=== PATIENT | male | born 1935 | race Caucasian/White ===

== ENCOUNTER 2019-09-22 10:51 | Inpatient (IN) | payer OTHER, BC ==
[~2019-09-22] VITALS: Ht 177.8 cm; Wt 65.3 kg
[2019-09-22 10:54] VITALS: BP 97/48
[2019-09-22 11:29] LABS: HEMATOCRIT 31.5 % (42.0-52.0); HEMOGLOBIN 10.2 gm/dL (14.0-18.0); MCH 31.6 pg (26.0-34.0); MCHC 32.5 g/dL (28.0-37.0); MCV 97.1 fL (80.0-100.0); PLATELET COUNT 101 thou/uL (150-400); RBC 3.24 mil/uL (4.50-6.00); WBC 2.9 thou/uL (4.0-11.0)
[2019-09-22 11:38] LABS: APTT 32.9 Seconds (24.5-32.8); INR 1.2; PROTIME 12.1 Seconds (9.3-11.4)
[2019-09-22 11:42] LABS: URINE BILIRUBIN NEGATIVE (Negative); URINE BLOOD 3+ (Negative); URINE CLARITY CLEAR; URINE COLOR YELLOW; URINE GLUCOSE-RANDOM* NEGATIVE (Negative); URINE KETONES NEGATIVE (Negative); URINE LEUKOCYTES-REFLEX 1+ (Negative); URINE NITRITE-REFLEX NEGATIVE (Negative); URINE PROTEIN (DIPSTICK) NEGATIVE (Negative); URINE UROBILINOGEN 0.2 E.U./dl (0.2-1.0)
[2019-09-22 11:49] LABS: SQUAMOUS None Seen /LPF (0-3)
[2019-09-22 11:50] LABS: CALCIUM 7.9 mg/dL (8.5-10.1); CREATININE 1.2 mg/dL (0.7-1.3); POTASSIUM 4.1 mmol/L (3.5-5.1)
[2019-09-22 11:50] LABS: CASTS None Seen /LPF (None Seen); CRYSTALS None Seen /LPF (None Seen); URINE RBC None Seen /HPF (0-2); URINE WBC-REFLEX 0-5 Rare /HPF (0-5)
[2019-09-22 11:53] LABS: AMP/METHAMP Negative (Negative); BARBITURATES Negative (Negative); BENZODIAZEPINES POSITIVE (Negative); COCAINE Negative (Negative); METHADONE Negative (Negative); OPIATES Negative (Negative); PCP Negative (Negative)
[2019-09-22 11:53] LABS: ALBUMIN 2.2 g/dL (3.4-5.0); TOTAL BILIRUBIN 0.4 mg/dL (<0.1-1.0)
[2019-09-22 12:25] LABS: ABSOLUTE NEUTROPHILS 1.9 thou/uL (1.4-8.2); ANISOCYTOSIS 1+; PLATELET ESTIMATE NORMAL
[2019-09-22 15:02] VITALS: BP 118/58
[2019-09-22 15:30] VITALS: BP 93/44
--- NOTE | 2019-09-22 17:04 | NUR ---
PT WOKE UP AT 1700 FORM HIS SLEEP. PT IS AOX2 TO SELF DATE OF AND TIME. PT CURRENTLY EATING IN DINING ROOM YELLOW SHIRT, YELLOW SOCKS ON. WILL CONTINUE TO MONITOR
--- NOTE | 2019-09-22 17:54 | NUR ---
pt admitted on 5south at 1530. pt is drowsy sleepin lying in bed. on ra. pt repositioned with hob elevated to open airway. vs taken and charted see chart. o2 saturation 92% on ra. pt was too drowsy at time of admission to answer any questions. so pt was left in bed to rest with bed alarm on. pt then woke up at 1700. pt ate diner. swallow food well without chocking.
[2019-09-22 20:00] VITALS: BP 97/50
[2019-09-22 21:00] VITALS: BP 97/50
--- NOTE | 2019-09-22 22:00 | NUR ---
Assumed care of patient this pm shift. Patient in good spirits. Patient sitting in mileu chatting with peers. Patient states that he feels like this is detention and that we should have cards or checkers to keep people from being bored. Patient denies pain. Patient denies hi/si. Patient takes medications whole. Patient is continent of bowl and bladder. Patients assessment shows clear breath sounds, active bowel sounds, and s1 s2 heard with auscultation. We will continue to monitor.
[2019-09-23 08:35] VITALS: BP 137/74
[2019-09-23 10:56] VITALS: BP 137/74
[2019-09-23 11:03] VITALS: BP 137/74
--- NOTE | 2019-09-23 13:34 | NUR ---
Assumed care this am around 0700. Patient is alert and oriented. He is pleasant and cooperative. This morning when taking breakfast speech therapist saw him cough as he swallows. Swallow study was ordered and he failed. diet adjusted and thickener added. Speech therapist observed him during lunh time while he is taking the new diet and she said he did so well. Patient denies SI/HI. Calm and participates in the group therapy. Vitals are stable. Will continue to monitor.
--- NOTE | 2019-09-23 14:58 | NUR ---
GISELLA and Dr. Garrison spoke with Maria Del Carmen about obtaining access to pt's finances. She said her and her sister Krystin have a trust in their names already, so they will be able to fund. She said they will need assistance in identifying places for memory care. SW team will continue to follow pt during his stay.
[2019-09-23 20:26] VITALS: BP 98/58
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
--- NOTE | 2019-09-23 22:58 | NUR ---
Assumed care of patient this pm shift. Patient in good spirits. Patient requests popcorn. Patient is very courteous and cooperative with rn. Patient denies pain. Patient denies hi/si. Patient concerned about the time he takes flomax and requests to take it in the evening. Patient takes medications whole. Patient ambulates without assistance. Patient states that he works out. Patients assessment shows clear breath sounds, active bowel sounds, and s1 s2 heard with auscultation. We will continue to monitor.
[2019-09-24 09:04] VITALS: BP 109/64
--- NOTE | 2019-09-24 10:30 | NUR ---
TALKED TO KEMI, PT DAUGHTER. SHE HAD CONCERNES ABOUT SWALLOW STUDY, HIS CLOTHES, AND ROSERY. SHE ASKED IF HE CAN SEE A CLERGY TO GET COMMUNION. SHE ALSO WAS WANTING TO KNOW ABOUT TRILIPTIAL THAT WAS GOING TO START TODAY OR NOT. SHE STATED HE WOULD LIKE TO HAVE A PRIVATE ROOM FOR HIS COMFORT. SHE ALSO WANTED TO MAKE SURE HE GETS HIS SLIPPERS AND ELECTRIC SHAVER. GAVE PT SHAVER, SLIPPERS AND PUT A PAIR OF CLOTHES IN HIS ROOM. WHEN PT WAS FINISHED WITH ELECTRIC RAZOR, WE PUT AWAY IN HIS PERSONAL BAG IN LOCKER.
[2019-09-24 11:06] VITALS: BP 109/64
--- NOTE | 2019-09-24 12:54 | NUR ---
Assumed care at 0700. Patient awake, alert and oriented x4. Very forgetful. Vitals are stable. Patient failed a swallow study yesterday so he is still on mechanical diet. Today he was complaining that he wants to eat what other patients are eating but he was reminded of his special diet and why he is taking it. He refused to eat lunch. Patient has a running nose(common cold) and Dr. Bowman was notified. Patient denies SI/HI. Jovial mood when conversing with the peers. Ambulates without any support. Will continue ot monitor.
--- NOTE | 2019-09-24 13:43 | NUR ---
0900 PATIENT REFUSED TO PARTICIPATE IN ANY GROUPS.
[2019-09-24 19:15] VITALS: BP 87/53
--- NOTE | 2019-09-24 22:59 | NUR ---
Pt alert and oriented x4. Pt was in the dayroom watching tv at time of assessment. Pt was plesant and cooperative during assessment. Pt denies anxiety and/or depression. Pt denies SI/HI/AH/VH. Pt had HS snacks. Pt took meds whole. Pt on thickened liquid. Pt spoke with and dtr prior to bedtime. Pt currently in bed sleeping. Will continue to monitor.
[2019-09-25 08:49] VITALS: BP 101/59
[2019-09-25 10:38] VITALS: BP 101/59
[2019-09-25 19:38] VITALS: BP 107/53
[2019-09-26 09:08] VITALS: BP 115/56
[2019-09-26 12:40] VITALS: BP 115/56
--- NOTE | 2019-09-26 13:00 | NUR ---
ASSUMED CARE AT 0700 THIS MORNING. PT. UP, DRESSED AND ON THE UNIT FOR MEALS. FAMILY CALLED AND WANTED UPDATE ON PT. UPDATE PROVIDED. PT. WALKING ON THE UNIT. HE STATES, "I'M DOING MY EXERCISES". HE IS PLEASANT AND COOPERATIVE WITH STAFF/PEERS. SAT ON THE UNIT DURING MORNING MEETING. HE TOOK HIS MEDICATIONS WITHOUT PROBLEMS.
--- NOTE | 2019-09-26 15:13 | NUR ---
Due to COVID-19 SW is meeting with patients and completing check-ins. SW brought pt to her office to talk since he wanted to speak privately. Pt asked for an update and SW explained she is working with his daughters and niece. He asked if he needed to speak to his lugger. SW responded if he wanted to he could. He said "everyone else has experts talking to them, and I need my own." SW agreed that he should have someone to discuss decisions with.
[2019-09-26 19:49] VITALS: BP 126/69
--- NOTE | 2019-09-27 00:53 | NUR ---
Assumed care on 09/26/19 @ 1900, in the [facility], watching tv and socializing with peers. Cooperated with assessment and compliant with medications. HRRR, S1S2 auscultated. Lung sounds clear, diminished in L lower field. Pt reports he has had L lung surgery removing a lobe of his lung. Honey thick beverages and Mechanical soft diet orders in place. Pt likes neither the honey thick nor the mechanical soft food. Tylenol 650 provided for 5/10 knee pain @ 2155, follow up noted to be sleeping. Later, was provided Trazadone 25 @ 2355 for insomnia. Returned to bed @ 0035, and is sleeping at this writing, bed in low position, eyes closed, respirations even and unlabored.
[2019-09-27 05:55] VITALS: BP 126/69
--- NOTE | 2019-09-27 06:02 | NUR ---
slept 4 hours overnight
[2019-09-27 09:29] VITALS: BP 126/64
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
--- NOTE | 2019-09-27 17:09 | NUR ---
SW completed a check in instead of group with pt's due to COVID-19 guidelines SW, nursing extrusion press supervisor, and a FINANCIAL SALES MANAGER joked with pt during check in; they protended pt was the boss and they were the patients. He appeared to enjoy that role play. He then wanted to know who was making the decisions in him being on the unit.
[2019-09-27 19:39] VITALS: BP 107/59
--- NOTE | 2019-09-27 20:28 | NUR ---
Assumed care of patient at change of shift. Pt. up ambulating all around the unit talking to peers in day room and talking to his roomate. He comes to the nurses station to make requests for his roomate. He gave up and stated that patient had to urinate with urinal. He then came up and stated that he needed a bedpan, and he took him a snack and came to the nurse station to say that someone needed to go help him eat it. He was told that snacks were not allowed in the room and he stated that he was sorry for taking it in there. His roomate's nurse went down to assist the roomate. He is a/Ox4. He denies pain, SI/HI/AH/VH.
[2019-09-27 23:23] VITALS: BP 107/59
[2019-09-28 06:22] LABS: CALCIUM 8.1 mg/dL (8.5-10.1); CREATININE 0.9 mg/dL (0.7-1.3); POTASSIUM 3.6 mmol/L (3.5-5.1)
[2019-09-28 09:25] VITALS: BP 149/71
--- NOTE | 2019-09-28 12:50 | NUR ---
GISELLA sent an email to Krystin Agrawal, and Maria Del Carmen asking if they have been able to identify any places they would like GISELLA to send a referral to. SW team will continue to follow pt during his stay on this unit.
--- NOTE | 2019-09-28 14:00 | NUR ---
Assumed care at 0700. Has been up in the w/c or recliner during the shift. His conversation is garbled, nonsensical. At one point he was using his gown to wipe the table. He is incontinent and takes 2-3 staff to transfer him, depending on his level of cooperation. He does not try to engage others in conversation. No indicators of pain. He has been toileted x 4 during the shift.
--- NOTE | 2019-09-28 19:25 | NUR ---
Nurse spoke with patient's daughter Dqcoc=[phone] she had brought in more belongings. Patient was given eye glasses-garcia and newspapers. Belongings inventoried by community service specialist. His conversation has been pleasant and appropriate. He has pleasant/euthymic mood, pleasant to happy affect. He used his two phone calls to his . No c/o pain. Compliant with medications and programming. Stated he has right knee cap pain-did not want anything for it. He would like his own support hose washed and returned to wear. Given prune juice; no BM reported for today. Said he spit up a tiny amount of blood this AM. Instructed to show staff if he spit up any more blood.
--- NOTE | 2019-09-28 19:51 | NUR ---
ASSUMED CARE ON 09/28/19 @ 1900, IN BED, AWAKE A&O X 3-4, LUNGS CTA IN UPPER KIDD, LOWER RIGHT FIELD CTA, LOWER LEFT FIELD DIMINISHED. PATIENT REPORTS SURGICAL REMOVAL OF LOWER LEFT LUNGS. ABD ACTIVE X 4 Q, HRRR.
[2019-09-28 19:55] VITALS: BP 108/52; BP 149/71
--- NOTE | 2019-09-29 08:55 | NUR ---
GISELLA received an email from Maria Del Carmen asking for a listing of facilities in [place]. She also said her and her family are reviewing facilities in the area currently. GISELLA provided Maria Del Carmen with a listing of [place] facilite[place] via [email or web address] GISELLA team will continue to follow pt during his stay on this unit.
[2019-09-29 09:30] VITALS: BP 121/64
--- NOTE | 2019-09-29 09:54 | NUR ---
0700 ASSUMED CARE OF PATIENT. PATIENT IN ROOM AT THAT TIME. PATIENT TO DAYROOM FOR BREAKFAST ATE 90% OF MEAL. AFTER BREAKFAST PATIENT UP AMB IN VINCENT STATES "IM GETTING MY EXERCIS IN BY WALKING". MEDICATIONS GIVEN WITHOUT DIFFICULTY. PATIENT DENIES SI/HI/AH/VH, PATIENT REQUESTS ELECTRIC RAZOR TO SHAVE. 0950 PATIENT SHAVES IN ROOM. PATIENT IS CALM AND COOPERATIVE. WILL CONTINUE TO OBSERVE
[2019-09-29 19:45] VITALS: BP 107/56
--- NOTE | 2019-09-30 01:02 | NUR ---
Care assumed of patient at 1915: Patient seated in dayroom at start of shift. Interacting well with staff and peers. Alert and oriented x4. Pleasantly confused and forgetful at times. Denies SI/HI/AH/VH. Denies depression or anxiety. No s/s of delusional or paranoia behaviors. No aggression observed. Patient declined HS snack. Patient retired to bed rather early. Requested PRN Tylenol for knee pain. Patient became quite upset when provided HS medication due to wanting thin water and not honey thickened water. Patient states that he is always allowed thin water with his medications. Argumentative, resistant. Patient eventually took HS medications. Patient otherwise calm, pleasant and cooperative. Patient not interested in why he is receiving thickened liquids and the necessity of sticking with ST and MD orders. Patient was able to fall asleep shortly after and has been resting quietly since.
[2019-09-30 08:00] VITALS: BP 124/67
--- NOTE | 2019-09-30 12:50 | NUR ---
Date of Admission: 09/22/19 Date of Activity Therapy Assessment: 09/25/19 Activity Goal: Reality orientation, structure Initial Goal: 2 Group activities/day Weekly progress towards goal: Achieving current goals Group participation level: Full Behaviors observed: Patient is pleasant and engaged in the milieu. He enjoys socializing with both peers and staff. He is also often seen walking the halls for exercise. Plan: No change towards goal
--- NOTE | 2019-09-30 14:57 | NUR ---
GISELLA spoke with Maria Del Carmen who said the delay now is that they must get conservatorship before they can place pt in a facility due to pt's vigilant attempts to try to keep her, her sister, and her cousin out. She said [facility] is looking for placement in [place] and may have identified a couple places, but is still researching them. They will let GISELLA know Thursday via email options. SW team will continue to follow pt during his stay on this unit.
--- NOTE | 2019-09-30 16:22 | NUR ---
Up ambulating in unit without s/o distress. Alert and orientated X 4. R pupil 3mm and L pupil [address] Garrison aware. States he feel like a million dollars. Showered and shaved independently. Denies SI/HI. States concern is peer coming into his room and getting into his belongings. Working toward discharge. Breath sounds clear t/o, bilaterally equal. Reg HR auscultated. Color pink with brisk capillary refill and palpable peripheral pulses. Independent with voiding. Active bowel sounds over soft abdomen. Regular steady gait. Daughter called for update, spoke with pt.
--- NOTE | 2019-09-30 16:29 | NUR ---
SW did check in with patients instead of groups due to COVID-19 guidelines. Pt was talking with a staff member when she did rounds. He looked pleasant and not upset.
--- NOTE | 2019-09-30 21:11 | NUR ---
Assumed care of pt. at change of shift. He was ambulating hallways and sitting in day room. Gait is slow, slightly shuffling, steady and consistent. He is alert and oriented x 4, but forgetful at times.
[2019-09-30 23:07] VITALS: BP 124/67
--- NOTE | 2019-10-01 06:11 | NUR ---
Assumed care at change of shift. Pt. up ambulating with slow and steady gait. Patient is alert and oriented x 4. Pt. requested phone and called daughter and spoke nicely to family members and returned phone within time limit. Pt.denies pain and no signs or symptoms of distress noted. Pt. slept well through the night. He did ambulate to the nurses station to request help for his roomate. Assessment completed.
[2019-10-01 07:15] VITALS: BP 95/57
--- NOTE | 2019-10-01 12:02 | NUR ---
Up ambulating in unit without s/o distress. States he didn't sleep well last night d/t noise in unit. Goal is to work toward discharge. Alert and orientated X4. Denies SI/HI. R pupil 1 mm larger than L, reactive. Conversive with staff and peers. Breath sounds clear t/o, decreased in LLL. Reg HR auscultated. Color pink with brisk capillary refill and palpable peripheral pulses. Independent with voiding. Active bowel sounds over soft, rounded abdomen. Ambulates with regular, steady gait. Requesting something for runny nose. Clear drainage from nose. PRN med given. No s/o distress. Daughter called for update, then spoke with pt. Pt. then made additional phone call, informed of phone restrictions. Brought phone back to desk within 5 min. Eating lunch and reading paper in day room. No s/o distress.
--- NOTE | 2019-10-01 17:36 | NUR ---
SW met with patients individually instead of group due to COVID-19 guidelines. Patient stated he was sleepy and did not want to engage with SW.
[2019-10-01 20:21] VITALS: BP 105/51
[2019-10-01 23:32] VITALS: BP 105/51
[2019-10-01 23:50] VITALS: BP 105/51
--- NOTE | 2019-10-02 04:28 | NUR ---
Pt. slept well through the night. He is ad osman with his respositioning in bed and getting up to toilet. At approx. 0300 he ambulated to desk to check what the time was and then returned to his room and went back to sleep. Pt. continues to offer no complaints and no signs or symptoms of distress is noted.
[2019-10-02 09:23] VITALS: BP 109/67
--- NOTE | 2019-10-02 16:54 | NUR ---
GISELLA completed 1 on 1 vs. group due to COVID-19 guidelines. Patient was engaged. He expressed concerns about being able to order his meals for tomorrow. SW assisted with getting nursing staff to help with his meal request. Patient appeared satisfied.
--- NOTE | 2019-10-02 17:11 | NUR ---
ALERT AND OREIENTED X4 VERY PLEASANT AND COOPERATIVE. ATE ALL 3 MEALS IN DINNING ROOM. AMBULATES WITH SLOW STEADY GATI. TOOK SHOWER ON OWN AND SHAVED. SPOKE WITH FAMILY ON PHONE. DENIES PAIN. ATTENDED GROUPS AND PARTICIPATES WITH OTHER PATIENTS. GOOD APPETITE.
[2019-10-02 19:37] VITALS: BP 106/65
--- NOTE | 2019-10-02 22:59 | NUR ---
Assumed care on 10/02/19 @ 1900, sitting on a couch in the day room watching tv and socializing with peers. Daughter called and asked if she can bring [employer] papers, [employer] and [employer] newspaper. 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 Pt cooperated with assessment, Hrrr, Lungs CTA, diminished in lower left field, ABD N x 4 Q, compliant with medication. Received newspapers from family, placed in room on the nightstand. In bed at this writing, bed in low position, eyes closed, respirations even and unlabored. Will continue to monitor q 12 minutes for patient safety.
[2019-10-03 00:49] VITALS: BP 106/65
[2019-10-03 06:18] LABS: HEMATOCRIT 30.1 % (42.0-52.0); HEMOGLOBIN 10.3 gm/dL (14.0-18.0); MCH 32.9 pg (26.0-34.0); MCHC 34.2 g/dL (28.0-37.0); MCV 96.2 fL (80.0-100.0); PLATELET COUNT 112 thou/uL (150-400); RBC 3.13 mil/uL (4.50-6.00); RDW 19.3 % (10.5-14.5); WBC 2.9 thou/uL (4.0-11.0)
[2019-10-03 06:24] LABS: INR 1.1; PROTIME 11.5 Seconds (9.3-11.4)
[2019-10-03 06:42] LABS: ALBUMIN 2.2 g/dL (3.4-5.0); CALCIUM 8.1 mg/dL (8.5-10.1); POTASSIUM 3.6 mmol/L (3.5-5.1); TOTAL BILIRUBIN 0.6 mg/dL (<0.1-1.0); TOTAL PROTEIN 5.2 g/dL (6.4-8.2)
[2019-10-03 08:21] VITALS: BP 117/60
[2019-10-03 08:22] LABS: ABSOLUTE NEUTROPHILS 2.2 thou/uL (1.4-8.2); ANISOCYTOSIS 1+; PLATELET ESTIMATE NORMAL
[2019-10-03 09:14] VITALS: BP 117/60
--- NOTE | 2019-10-03 11:51 | NUR ---
1150 RESUMMED CARE FROM OVERNIGHT SHIFT THIS AM, PATIENT IN DAY ROOM READING THE PAPER WAITING FOR BREAKFAST. PATIENT'S ABDOMEN SOFT ROUND BOWEL SOUNDS PRESENT IN ALL FOUR QUADRANTS. PATIENT'S LUNGS CLEAR PATIENT DENIES SI/HI/AH/VH AT PRESENT. PATIENT COOPERATIVE PLEASANT NO BEHAVIORS WILL CONTINUE TO MONITOR PATIENT FOR SAFETY AND BEHAVIORS.
--- NOTE | 2019-10-03 16:52 | NUR ---
Due to COVID-19 regulations, GISELLA is meeting with pt's 1- in place of group activities. Pt was in his room reading a newspaper with SW arrived. 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
[2019-10-03 19:25] VITALS: BP 100/52
--- NOTE | 2019-10-04 04:40 | NUR ---
Assumed care of pt @ 1900. Pt calm et cooperative with pleasant demeanor. Took medications whole without difficulty. Pt attempted to decline thickened liquid but explained that he could not have unthickened liquid due to possibility of aspiration. Pt verbalized understanding. Ambulates the halls ad osman with steady gait. Denies SI/HI @ present time. VSWNL. Health assessment with no abnormalities noted at present time. Currently resting in bed with eyes closed. Will continue to monitor per protocol.
[2019-10-04 07:46] VITALS: BP 108/55
--- NOTE | 2019-10-04 10:20 | NUR ---
Up ambulating t/o unit with regular, steady gait. Conversive with staff and peers. Alert and orientated X4. Denies SI/HI. Pupils unequal and briskly reactive. Currently reading newspaper. Breath sounds clear t/o, decreased in LLL. Reg HR auscultated. Color pink with brisk capillary refill and palpable peripheral pulses. Fingertips slightly cool to touch. +1 edema in RLE, +2 in LLE, ankit hose replaced after assessment. Independent with voiding. Active bowel sounds over soft, rounded abdoment. States he had BM this AM, small smear of yellow brown stool around anus. Independent with ADLs. Compliant with meds.
--- NOTE | 2019-10-04 10:27 | NUR ---
Due to COVID-19, CONTACT CLERK met with patient 1:[address] of group activity. Patient was reviewing hardware store ads. 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 The patient spoke about having Boy Apron Cleaner help him do this when he discharges. He asked about exercising. CONTACT CLERK explained that a formal exercise group would not take place but that CONTACT CLERK could help him with self guided stretches or could walk the unit with him. Pt thankful but stated that he had planned to take a shower and shave.
--- NOTE | 2019-10-04 17:13 | NUR ---
Due to COVID-19 guidelines, SW met with pts on a 1-to-1 basis. Pt told SW that he was ready to "get out of here." SW explained she is working hard every day to get him to his new home. She provided an update that his daughter would like him to move to [place]. Pt said he is agreeable and wants to move there.
[2019-10-04 19:59] VITALS: BP 104/54
--- NOTE | 2019-10-04 21:04 | NUR ---
Care assumed of patient at 191: Patient seated at dining table at start of shift. Reading newspapers, opening letters that appears to be from children/grandchildren. Patient compliant with nursing assessment. Alert and oriented x4. Denies SI/HI/AH/VH. Denies depression or anxiety. Patient observed walking to ice machine and getting cup of ice water. Patient re-directed that he is to receive honey thickened liquids. Offered thickened juice, tea or water. Patient became irritable, yelling "just throw it away!". Denied wanting any thickened fluids offered. Patient took HS medication whole with applesauce. Ate 100% HS snack. Patient approached nurses station around 2029 asking to use the phone. Patient re-directed that he had already had his 2 phone calls for the day. Patient became agitated, stating "they called me!". Message passed to patient that his had called and wanted nurse to tell him that she said yoandy. Patient cursed a couple words and walked back to his room. Patient resting quietly in bed at this time.
[2019-10-05 09:09] VITALS: BP 126/62
--- NOTE | 2019-10-05 12:39 | NUR ---
Up ambulating in unit without s/o distress. Alert and orientated X 4. States he has R knee pain 5-6/10 but is reluctant to take Tylenol, given with AM meds. Denies SI/HI. Remains concerned about clear drainage from nose. Breath sounds clear t/o, decreased in LLL. Reg HR auscultated. Color pink with brisk capillary refill and palpable peripheral pulses. +2 nonpitting edema in lower extremities. [place] hose in place. Independent with voiding. Active bowel sounds over soft, rounded abdomen. Took shower and shaved independently. Conversive with peers and staff. States pain improved after Tylenol but continues to rate it a 5/5. Up ambulating in unit without s/o distress.
--- NOTE | 2019-10-05 15:44 | NUR ---
GISELLA received an email from Maria Del Carmen with 3 options she would like a referral sent to and they are: [facility], [facility], and [facility]. All 3 are located in [place]. Pt came to GISELLA office and asked for an update. GISELLA showed him pictures of all three facilities and he liked [facility]. GISELLA contacted all 3 facilities and sent referrals for pt to them. GISELLA provided this update to pt's daughters and niece. GISELLA team will continue to follow pt during her stay on this unit.
[2019-10-05 20:05] VITALS: BP 105/57
--- NOTE | 2019-10-06 04:55 | NUR ---
Assumed care of pt @ 1900. Pt calm et cooperative with pleasant demeanor this shift. Took medications whole with bites of applesauce due to pt's dislike of thickened liquids. Pt tolerated medications well. Ambulates the halls ad osman with steady gait. VSWNL. Health assessment with no abnormalities other than previously noted. Socialized in dayroom with peers until HS. Denies SI/HI @ present time. Currently resting in bed with eyes closed. Will continue to monitor per protocol.
--- NOTE | 2019-10-06 13:30 | NUR ---
0700 ASSUMED CARE OF PATIENT, PATIENT SITTING IN DAYROOM AT 0715. DENIES NEEDS AT THAT TIME. 0850 PATIENT TAKES MEDS WITHOUT DIFFICULTY, DENIES SI/HI, BS ACTIVE. PATIENT IS CALM AND COOPERATIVE. TAKES MEDICATION WITH APPLESAUCE. WILL CONTINUE TO OBSERVE
--- NOTE | 2019-10-06 15:05 | NUR ---
No group today d/t COVID 19 restrictions. Pt was provided various independent leisure activities throughout the day and occupied his time reading the newspaper and playing Relypsa with a deck of cards. Pt is in good spirits.
[2019-10-06 15:33] LABS: ABSOLUTE NEUTROPHILS 2.4 thou/uL (1.4-8.2); BASOPHILS 0.7 % (0.0-2.0); EOSINOPHILS 0.8 % (0.0-3.0); HEMATOCRIT 34.6 % (42.0-52.0); HEMOGLOBIN 11.4 gm/dL (14.0-18.0); LYMPHOCYTES 26.3 % (24.0-44.0); MCH 31.9 pg (26.0-34.0); MCHC 32.9 g/dL (28.0-37.0); MCV 96.9 fL (80.0-100.0); MONOCYTES 4.8 % (1.0-8.0); PLATELET COUNT 155 thou/uL (150-400); POLYS 67.4 % (36.0-66.0); RBC 3.57 mil/uL (4.50-6.00); RDW 19.5 % (10.5-14.5); WBC 3.6 thou/uL (4.0-11.0)
--- NOTE | 2019-10-06 15:33 | NUR ---
GISELLA received a call from Juan Richardson at [facility] stating he would like to accept pt. He said Thursday at 11 am is okay for discharge and they do not provide transportation. GISELLA sent an email to Krystin Joyce, and [facility] notifiying them of such. GISELLA arranged transportation for pt through [employer] for pt. Transportation #[id number]. SW team will continue to follow pt during his stay on this unit.
[2019-10-06 19:31] VITALS: BP 112/66
--- NOTE | 2019-10-07 01:10 | NUR ---
Care transfered at 191 to this RN, 1930 pt sitting in bed with eyes open, AAOx4 calm and cooperative. Skin w/d noted bi-lat UE very dry moisture applied. Pt PERRLA, all Lung de la o clear but dimished at bases, bi-lat, RR 16 even and non-labored on RA. HT S1, S2, with RR, radial and pedal pulse equal and strong, LE tent hose clean, dry and intact +1 edema bi-lat. Pt reports he is concerned about upcoming court case and stated he should never of sign a power of united states attorney, The power of united states attorney was for medical purposes only if he became incapacitated and could not make his own medical decisions. Pt denies SI/HI and states he has never have any hallucinations visual or auditory. Pt was communicating approiately and coherent in his thought process. Observed pt walking to bathroom, strong steady gait and no assistance necessary. Pt reports pain in right knee throbbing and rates it at a 6 on zero to 10 scale, pt reported he working with his docotor and discussing a knee replacement and plans to continue that once cleared from court. Pt further reported he did walk and standing a little more then normal and that is why it is throbbing. 2106 pt AAO supine observed pt reposition with no trouble to sitting position, pt had zero trouble with swallowing medication and was compliant with taking with applesauce only 50% consumed. Pt denies any further medical concern at this time. 2155 pt AAO eyes closed and lights on, pt reports he was saying his prays each night. Pt scale pains at this time at a 3 on 0-10 scale, pt reports that he knows that he is going to have pain until he gets his right knee replaced. Pt was ok setting his pain goal at 3. Zero acute distress noted during this shift.
--- NOTE | 2019-10-07 06:39 | NUR ---
0150 PT SUPINE WITH EYES CLOSED RR 16 EVEN AND NON-LABORED ON RA; approximately 0615 medication admin. pt had no difficulty swallowing. Pt denies any pain and SI/HI/AH/VA. Pt denies any further concerns and zero acute distress noted at this time.
--- NOTE | 2019-10-07 07:44 | NUR ---
Followup: eating much better, 100% of meals. No new available. Continues to voice strong dislike of thickened liquids which pt still requires for aspiration risk. Likely discharge planned for Thursday. Change status to low nutrition risk, continue to encourage and offer thickened liquids.
[2019-10-07 08:14] VITALS: BP 99/56
--- NOTE | 2019-10-07 11:57 | NUR ---
No group d/t COVID-19 restrictions. Patient requested newspaper upon delivery this morning. Mood cheerful and hopeful for Thursday discharge. Pt continues to be independent in his pursuits.
--- NOTE | 2019-10-07 12:04 | EKG ---
[facility] [place] [address] ELECTROCARDIOGRAM REPORT Name: DARLEEN BARTON Room #: 524A-A ADM IN M.R.#: [id number] Admission: 09/22/19 Attend Phys: Felice Garrison DO Discharge: Date of : 33 Report #: [id number] THIS REPORT FOR: cc: FAM - Family physician unknown FAM - Family physician unknown Hipolito Yap MD ~ THIS REPORT FOR: //name// [facility] ED Test Date: 2019-09-22 Test Time: 11:07:40 Pat Name: DARLEEN BARTON Department: Room: 170 Gender: M Screening Representative: LUCRECIA : 1935 Requested By: Aliza Feldman Order Number: [id number] MD: Hipolito Yap Measurements Intervals [place] Rate: 72 P: 0 ND: 136 QRS: -38 QRSD: 159 T: 164 QT: 491 QTc: 538 Interpretive Statements A-V dual-paced complexes w/ some inhibition No further analysis attempted due to paced rhythm No previous ECG available for comparison Electronically Signed On 09-22-2019 13:19:01 CDT by Hipolito Yap [email or web address] <ELECTRONICALLY SIGNED> By: Hipolito Yap MD 09/22/19 1319 1107 1107 Hipolito Yap MD /EPI
--- NOTE | 2019-10-07 12:42 | NUR ---
PREET spoke with Ab from the [facility] concerning PPOC form sent to to be completed. Ab stated the form needed to be completed regardless if Pt goes to memory care or assisted living. Ab also stated they may not be able to accept Pt until Thursday due to the family not have an approved conservatorship. Also the Pt's family has not made up their mind if they want the Pt to be in AL or memorycare. Ab also stated the Pt's family has not completed the paperwork for needed prior to admission, as of today. Preet will follow up with Pt's family concerning the matter .
--- NOTE | 2019-10-07 13:24 | NUR ---
GISELLA and Dr. Almaraz had spoke with KIMBERLY Agrawal, concerning discharge on Thursday. Tanja explained that the apartment would not be ready until Thursday. Tanja also stated that the Pt's daughter are waiting for the conservatorship but believes the conservatorship won't be completed by then. Tanja also stated the family has to pay $2000 for Pt to move to the [facility], but that was not and issue. Tanja stated she would have Pt's daughters pay the money and she would completed the proper paperwork to ensure everything is ready for Pt to move Thursday. GISELLA will follow up with family concerning this matter.
--- NOTE | 2019-10-07 14:18 | NUR ---
SW contacted [employer], , to reschedule transportation for 10/12/2019 @ 11am.
--- NOTE | 2019-10-07 18:03 | NUR ---
0700 ASSUMED CARE OF PATIENT, PATIENT SITTING IN DAYROOM AT THAT TIME. PATIENT DENIES NEEDS AT THAT TIME. PATIENT ATE 100% OF BREAKFAST. MEDICATION TAKEN WITHOUT DIFFICULTY. BS ACTIVE, LS CLEAR. PATIENT DENIES NEEDS. PATIENT UP AMB IN [place]. CALM AND COOPERTIVE. WILL CONTINUE TO OBSERVE.
[2019-10-07 22:08] VITALS: BP 133/65
--- NOTE | 2019-10-08 04:38 | NUR ---
Assumed care of pt @ 1900. Pt calm et cooperative this shift. Took meds with applesauce without difficulty. Ambulates halls ad osman with steady gait. Socialized with peers in dayroom until HS. VSWNL. Health assessment with no abnormalities other than previously noted. Denies SI/HI @ present time. Currently resting in bed with eyes closed. Will continue to monitor per protocol.
[2019-10-08 07:10] VITALS: BP 115/50
--- NOTE | 2019-10-08 12:44 | NUR ---
pt took shower and shaved. family brought newspapers. pt is relaxing and reading. pleasant and cooperative.
--- NOTE | 2019-10-08 14:34 | NUR ---
Sw met with Pt 1 on in common area in lieu of group due to COVID-19 restriction. Pt did not have any concerns or question at this time. Pt mood seem good.
--- NOTE | 2019-10-08 15:28 | NUR ---
PT RESTING IN BED READING THE PAPER AND TAKING NAPS. NO INCREASED ANXIETY. PT COMPLIANT WITH CARE. TAKES MEDS W/O DIFFICULTY.
--- NOTE | 2019-10-08 16:43 | NUR ---
RT GROUP NOTE-PT DID PARTICIAPTE IN SESSION WITH 3 MALE PEERS IN GROUP GROUP AND PROCESSED FEELINGS OF ISOLATION AND FRUSTRATION OVER THIS IDENTIFIES FEELING DEPRESSED BUT STATES HE DOESN;T FEEL LIKE HE NEEDS TO BE HERE AND IT IS A PUNISHMENT.
[2019-10-08 19:52] VITALS: BP 95/47
--- NOTE | 2019-10-09 03:40 | NUR ---
patient denied all psych issues. patient denied pain or discomfort. patient requesting thin liquids. patient had a flat affect, poor eye contact, good grooming and hygiene. patient in bed asleep at this time breathing regular and unlaboured.
[2019-10-09 07:35] VITALS: BP 114/50
[2019-10-09 10:27] VITALS: BP 114/50
--- NOTE | 2019-10-09 12:12 | NUR ---
1210 RESUMMED CARE OF PATIENT FROM OVERNIGHT SHIFT THIS AM, PATIENT IN DAY ROOM READING PAPER QUIETLY. PATIENT ATE BREAKFAST TOOK MEDICATION WITHOUT INCIDENCE. PATIENTS ABDOMEN SOFT AND ROUND BOWEL SOUNDS PRESENT LUNGS CLEAR. PATIENT DENIES SI/HI/AH/VH AT PRESENT PATIENT CALM COOPERATIVE INTERACTS WITH OTHERS. WILL CONTINUE TO MONITOR PATIENT FOR SAFETY AND BEHAVIORS.
[2019-10-09 19:52] VITALS: BP 93/57
--- NOTE | 2019-10-10 02:28 | NUR ---
patient denied all psych issues. patient had a flat affect, poor eye contact, good grooming and hygiene. patient calm and cooperative with meds and care. patient ambulates in the hallway with steady gaits. patient denied pain or discomfort. patient in bed asleep at this time breathing regular and unlaboured.
[2019-10-10 08:05] VITALS: BP 95/42
[2019-10-10 12:30] VITALS: BP 95/42
[2019-10-10 13:13] VITALS: BP 110/54
--- NOTE | 2019-10-10 17:26 | NUR ---
ASSUMED CARE AT 0700 THIS MORNING. PT. UP, INTERACTING WITH SELECT PEERS AND STAFF. HE TOOK HIS MEDICATIONS WITHOUT DIFFICULTY. NO NEW PROBLEMS NOTED OR VOICED. ATE ALL MEALS ON THE UNIT.
[2019-10-10 19:55] VITALS: BP 112/53
--- NOTE | 2019-10-11 02:03 | NUR ---
PATIENT AOX4 MAKES NEEDS KNOWN. PATIENT DENIED ALL PSYCH ISSUES. PATIENT HAD A FLAT AFFECT, POOR EYE CONTACT, GOOD GROOMING AND HYGIENE. PATIENT ENCOURAGED FLUIDS. PATIENT IS UP AT CROW. PERSONAL ITEM WITHIN REACH. PATIENT IN BED ASLEEP AT THIS TIME BREATHING REGULAR AND UNLABOURED.
[2019-10-11 08:57] VITALS: BP 103/55
--- NOTE | 2019-10-11 10:15 | NUR ---
0700 ASSUMED CARE OF PATIENT, PATIENT SITTING IN DAYROOM AT THAT TIME. 0800 PATIENT EATING BREAKFAST AT THAT TIME. DENIES NEEDS. 0850 PATIENT TAKES MEDS IN APPLESAUCE WITHOUT DIFFICULTY NO COUGH OBSERVED AFTER TAKING MEDICATION. PATIENTS GOAL FOR TODAY IS TO GET A SHOWER AND SHAVE. BS ACTIVE, NO C/O PAIN, DENIES SI/HI/AH/VH. 0930 PATIENT SHAVED WITH PERSONAL ELECTRIC SHAVER. WILL CONTINUE TO OBSERVE.
--- NOTE | 2019-10-12 06:12 | NUR ---
Pt. rested quietly during the night when checked on during frequent rounds. No c/o pain. A&O and has been cooperative with cares. Up ad osman.
[2019-10-12 08:14] VITALS: BP 124/64
[2019-10-12] MEDS ORDERED: ELIQUIS5 MG PO (09:11)
[2019-10-12] MEDS ORDERED: LORATIDINE 10 M10 M1 PO (09:11)
[2019-10-12] MEDS ORDERED: FLOMAX0.4 MG PO (09:11)
[2019-10-12] MEDS ORDERED: LIPITOR10 MG PO (09:12)
[2019-10-12] MEDS ORDERED: CLOPIDOGREL75 MG PO (09:12)
[2019-10-12] MEDS ORDERED: IMDUR 60 MG TAB60 M1 PO (09:13)
[2019-10-12] MEDS ORDERED: METOPROLOL SUCC50 MG PO (09:14)
[2019-10-12] MEDS ORDERED: TRAZODONE HCL50 MG PO (09:14)
[2019-10-12] MEDS ORDERED: OXCARBAZEPINE300 MG PO (09:14)
[2019-10-12] MEDS ORDERED: NAMENDA 5 MG TAB5 M1 PO (09:15)
[2019-10-12] MEDS ORDERED: CALCIUM 600 +1 EA13 PO (09:15)
[2019-10-12] MEDS ORDERED: PROTONIX40 M1 PO (09:16)
--- NOTE | 2019-10-12 09:28 | NUR ---
GISELLA received a call from Juan with [facility] asking SW to push transportation time back because family did not move pt's furniture in yesterday and will do so today. GISELLA contacted [facility] and moved transportation to [phone]. GISELLA provided update to pt's med team and Juan. SW team will continue to follow pt during his stay on this unit.
--- NOTE | 2019-10-12 11:18 | NUR ---
GISELLA D/C Note. GISELLA faxed to [facility] their DOC docs, statement from the doc that pt is symptom free, a log of pt's temps, and his discharge docs. GISELLA was having an issue with the fax so she also made a hard copy to be sent with pt of these items. GISELLA eventually was able to get fax to go through so she has filed pt's docs and confirmation in his chart. No other needs for GISELLA team to address at this time.
[2019-10-12 14:05] VITALS: BP 124/64
--- NOTE | 2019-10-12 14:12 | NUR ---
ASSUMED CARE AT 0700 THIS MORNING. PT. HAS BEEN DRESSED AND ON THE UNIT FOR MEALS. HE IS INTERACTING WITH SELECT OTHER PEERS. HE TOOK HIS MEDICATIONS WITHOUT PROBLEMS NOTED. NO NEW PROBLEMS WERE NOTED OR VOICED. HE CONTINUES TO STATE HE IS ANXIOUS TO LEAVE HERE AND GO HOME. HE IS SUPPOSED TO LEAVE HERE ABOUT 1530 TO 1600 TODAY. HE HAS BEEN ASKED TO GATHER HIS CLOTHING. UP TO THIS POINT HE HAS NOT DONE SO. HE REMAINS CHEERFUL.
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
== END 2019-10-12 15:35 | DRG 56 ==
LOC: ER 10:51 → EROBS 12:55 → SBH 12:55
PROVIDERS: Physician Assistant; Psychiatry & Neurology Psychiatry; ADMIT Psychiatry & Neurology Psychiatry
DX: G30.9 Alzheimer's disease, unspecified (principal); F01.51 Vascular dementia, unspecified severity, with behavioral disturbance; E43 Unspecified severe protein-calorie malnutrition; I11.0 Hypertensive heart disease with heart failure; F02.81 Dementia in other diseases classified elsewhere, unspecified severity, with behavioral disturbance; I50.22 Chronic systolic (congestive) heart failure; N39.0 Urinary tract infection, site not specified; I25.10 Atherosclerotic heart disease of native coronary artery without angina pectoris; D64.9 Anemia, unspecified; I48.0 Paroxysmal atrial fibrillation; K52.9 Noninfective gastroenteritis and colitis, unspecified; G47.33 Obstructive sleep apnea (adult) (pediatric); B96.1 Klebsiella pneumoniae [K. pneumoniae] as the cause of diseases classified elsewhere; R13.10 Dysphagia, unspecified; R09.81 Nasal congestion; K21.9 Gastro-esophageal reflux disease without esophagitis; N40.0 Benign prostatic hyperplasia without lower urinary tract symptoms; M19.90 Unspecified osteoarthritis, unspecified site; E78.5 Hyperlipidemia, unspecified; I73.9 Peripheral vascular disease, unspecified; Z85.118 Personal history of other malignant neoplasm of bronchus and lung; Z95.810 Presence of automatic (implantable) cardiac defibrillator; Z90.49 Acquired absence of other specified parts of digestive tract; Z87.891 Personal history of nicotine dependence
CPT/HCPCS: 10880